=== PATIENT | female | born 1995 | race Caucasian/White ===

== ENCOUNTER 2017-01-01 10:52 | Emergency (ER) | payer OTHER, BC ==
[~2017-01-01] VITALS: Ht 165.1 cm; Wt 94.4 kg
[~2017-01-01 10:52] MED LIST: FIORICET WI1 CAPSULE PO; IMITREX100 MG PO; KEPPRA250 MG PO; LORCET 5-325 M1 EACH PO; MEDROL DOSEPAK4 MG PO; MICROGESTIN FE1 EACH PO; MICROGESTIN1 EAC1 PO; PREDNISONE10 MG PO; TOPIRAMATE50 MG PO; TOPROL XL25 MG PO; ULTRAM50 MG PO
[2017-01-01] MEDS ORDERED: SKELAXIN800 MG PO (13:49)
[2017-01-01] MEDS ORDERED: TYLENOL WITH C1 EACH PO (13:54)
[2017-01-01 14:09] VITALS: BP 131/91
== END 2017-01-01 14:40 | disposition home or self-care (01) ==
LOC: EME 10:52
DX: S16.1XXA Strain of muscle, fascia and tendon at neck level, initial encounter (principal); V49.40XA Driver injured in collision with unspecified motor vehicles in traffic accident, initial encounter; Y92.410 Unspecified street and highway as the place of occurrence of the external cause; G40.909 Epilepsy, unspecified, not intractable, without status epilepticus
CPT/HCPCS: 72050; 99281; 99283

== ENCOUNTER 2017-05-05 10:36 | Emergency (ER) | payer BC ==
[~2017-05-05] VITALS: Ht 165.1 cm; Wt 101.5 kg
[~2017-05-05 10:36] MED LIST changes: +SKELAXIN800 MG PO; +TYLENOL WITH C1 EACH PO
[2017-05-05 11:10] VITALS: BP 152/93
[2017-05-05 11:37] LABS: HEMATOCRIT 46.7 % (36.0-46.0); HEMOGLOBIN 16.1 G/DL (11.9-15.5); MCH 30.1 PG (29.0-34.0); MCHC 34.5 G/DL (30.0-36.0); MCV 87.5 FL (83-99); PLATELET COUNT 333 K/uL (156-360); RBC DIS.WIDTH-CV 11.6 % (11.8-14.6); RED BLOOD COUNT 5.34 M/uL (3.80-5.20); WHITE BLOOD COUNT 8.2 K/uL (4.1-10.2)
[2017-05-05 11:46] LABS: ALBUMIN 4.5 g/dL (3.2-4.8); CHLORIDE 106 mEq/L (99-109); SODIUM 140 mEq/L (136-147)
[2017-05-05 11:49] LABS: GLUCOSE 97 mg/dL (70-99); TOTAL PROTEIN 8.2 g/dL (6.4-8.3)
[2017-05-05 11:51] LABS: TOTAL BILIRUBIN 0.6 mg/dL (0.0-1.0)
[2017-05-05 11:52] LABS: ALKALINE PHOSPHATASE 42 IU/L (3-129); CREATININE 0.8 mg/dL (0.6-1.3); GFR ESTIMATE (CALCULATED) > 59 mL/min/
[2017-05-05 11:53] LABS: UREA NITROGEN (BUN) 9 mg/dL (9-23)
[2017-05-05 11:54] LABS: AST (GOT) 19 IU/L (2-34)
[2017-05-05 11:55] LABS: ALT (GPT) 16 IU/L (3-49)
[2017-05-05 11:56] LABS: LIPASE 38 U/L (1.0-51.0)
[2017-05-05 12:01] LABS: QUANTITATIVE HCG < 4.0 MIU/ML
[2017-05-05 13:29] LABS: APPEARANCE CLOUDY ((CLEAR)); BILIRUBIN NEGATIVE; BLOOD NEGATIVE; COLOR YELLOW ((YELLOW)); GLUCOSE (STRIP) NEGATIVE; KETONES 80; LEUKOCYTES NEGATIVE; NITRITE NEGATIVE; PROTEIN (STRIP) 30; SPECIFIC GRAVITY 1.024 (1.000-1.030); UROBILINOGEN 0.2 MG/DL (0.2-1.0)
[2017-05-05 14:01] LABS: BACTERIA RARE /HPF; EPITHELIAL CELLS 2+ /HPF; MUCUS 2+ /LPF; UCUL ADDED? NO; WHITE BLOOD CELLS 0-5 /HPF (0-5)
== END 2017-05-05 11:55 | disposition left against medical advice (07) ==
LOC: EME 10:36
DX: R10.9 Unspecified abdominal pain (principal); Z53.21 Procedure and treatment not carried out due to patient leaving prior to being seen by health care provider
CPT/HCPCS: 80053; 81003; 83690; 84702; 85027

== ENCOUNTER 2017-05-13 08:22 | Emergency (ER) | payer BC ==
[~2017-05-13] VITALS: Ht 170.2 cm; Wt 101.4 kg
[2017-05-13 08:49] LABS: EOSINOPHIL (%) 1.3 % (0-5); EOSINOPHIL COUNT 0.1 K/uL (0-0.3); HEMATOCRIT 39.6 % (36.0-46.0); HEMOGLOBIN 13.6 G/DL (11.9-15.5); IMMATURE GRANULOCYTE (%) 0.3 % (0.0-0.7); LYMPHOCYTE COUNT 1.4 K/uL (1.0-2.8); MCH 30.3 PG (29.0-34.0); MCHC 34.3 G/DL (30.0-36.0); MCV 88.2 FL (83-99); MONOCYTE (%) 8.8 % (3-12); MONOCYTE COUNT 0.3 K/uL (0-0.8); NEUTROPHIL (%) 51.6 % (45-76); PLATELET COUNT 249 K/uL (156-360); RBC DIS.WIDTH-CV 11.6 % (11.8-14.6); RBC DIS.WIDTH-SD 37.3 % (39-53); RED BLOOD COUNT 4.49 M/uL (3.80-5.20); WHITE BLOOD COUNT 3.9 K/uL (4.1-10.2)
[2017-05-13 09:03] LABS: CHLORIDE 106 mEq/L (99-109); POTASSIUM 3.6 mEq/L (3.7-5.4); SODIUM 140 mEq/L (136-147)
[2017-05-13 09:04] LABS: GLUCOSE 100 mg/dL (70-99)
[2017-05-13 09:08] LABS: CREATININE 0.8 mg/dL (0.6-1.3); GFR ESTIMATE (CALCULATED) > 59 mL/min/
[2017-05-13 09:09] LABS: UREA NITROGEN (BUN) 8 mg/dL (9-23)
[2017-05-13 09:17] LABS: QUANTITATIVE HCG < 4.0 MIU/ML
[2017-05-13 10:31] LABS: VALPROIC ACID (DEPAKOTE) < 10.0 MCG/ML (50-100)
[2017-05-13 13:21] VITALS: BP 109/59
== END 2017-05-13 13:27 | disposition home or self-care (01) ==
LOC: EME 08:22
PROVIDERS: Emergency Medicine
DX: G40.909 Epilepsy, unspecified, not intractable, without status epilepticus (principal); F41.9 Anxiety disorder, unspecified; Z79.3 Long term (current) use of hormonal contraceptives; Z98.890 Other specified postprocedural states
CPT/HCPCS: 80048; 80164; 84702; 85025; 99281; 99285; J1953; J7050